=== PATIENT | female | born 1990 | race African-American/Black ===

== ENCOUNTER 2018-07-23 06:57 | Emergency (ER) | payer OTHER ==
[~2018-07-23] VITALS: Ht 160 cm; Wt 104.3 kg
[2018-07-23 07:42] LABS: ABSOLUTE NEUTROPHILS 8.8 thou/uL (1.4-8.2); BASOPHILS 0.1 % (0.0-2.0); EOSINOPHILS 0.1 % (0.0-3.0); HEMATOCRIT 42.5 % (37.0-47.0); HEMOGLOBIN 14.1 gm/dL (12.0-15.0); LYMPHOCYTES 11.5 % (24.0-44.0); MCH 30.5 pg (26.0-34.0); MCHC 33.1 g/dL (28.0-37.0); MCV 92.1 fL (80.0-100.0); MONOCYTES 3.8 % (1.0-8.0); PLATELET COUNT 277 thou/uL (150-400); POLYS 84.5 % (36.0-66.0); RBC 4.61 mil/uL (4.20-5.00); RDW 14.2 % (10.5-14.5); WBC 10.3 thou/uL (4.0-11.0)
[2018-07-23 07:46] LABS: CALCIUM 9.2 mg/dL (8.5-10.1); CREATININE 1.2 mg/dL (0.6-1.0); POTASSIUM 3.8 mmol/L (3.5-5.1)
[2018-07-23] MEDS ORDERED: KEPPRA 500 MG500 M1 PO (08:56)
[2018-07-23] MEDS ORDERED: PREDNISONE 20 M20 MG PO (08:56)
[2018-07-23 09:31] VITALS: BP 121/78
== END 2018-07-23 09:31 | disposition home or self-care (01) ==
LOC: ER 06:57
PROVIDERS: Emergency Medicine
DX: R56.9 Unspecified convulsions (principal); L50.9 Urticaria, unspecified; R07.89 Other chest pain

== ENCOUNTER 2018-11-14 17:09 | Emergency (ER) | payer OTHER ==
[~2018-11-14] VITALS: Ht 160 cm; Wt 104.3 kg
[~2018-11-14 17:09] MED LIST: KEPPRA 500 MG500 M1 PO; PREDNISONE 20 M20 MG PO
[2018-11-14 17:57] LABS: ABSOLUTE NEUTROPHILS 4.2 thou/uL (1.4-8.2); BASOPHILS 0.3 % (0.0-2.0); EOSINOPHILS 1.2 % (0.0-3.0); HEMOGLOBIN 12.6 gm/dL (12.0-15.0); LYMPHOCYTES 47.1 % (24.0-44.0); MCH 30.4 pg (26.0-34.0); MCHC 33.2 g/dL (28.0-37.0); MCV 91.8 fL (80.0-100.0); PLATELET COUNT 276 thou/uL (150-400); POLYS 42.4 % (36.0-66.0); RBC 4.15 mil/uL (4.20-5.00); RDW 14.2 % (10.5-14.5); WBC 9.8 thou/uL (4.0-11.0)
[2018-11-14 18:32] LABS: ANION GAP 8 mmol/L (7-16); BUN 11 mg/dL (7-18); CALCIUM 9.1 mg/dL (8.5-10.1); CHLORIDE 107 mmol/L (98-107); CO2 28 mmol/L (21-32); GLUCOSE 122 mg/dL (74-106); POTASSIUM 3.8 mmol/L (3.5-5.1); SODIUM 143 mmol/L (136-145)
[2018-11-14 18:41] LABS: ALBUMIN 3.4 g/dL (3.4-5.0); SGOT 17 U/L (15-37); SGPT 11 U/L (30-65); TOTAL BILIRUBIN 0.3 mg/dL (<0.1-1.0); TROPONIN-I <0.06 ng/mL (<0.06)
[2018-11-14] MEDS ORDERED: ZANTAC 150MG T150 MG PO (19:32)
[2018-11-14] MEDS ORDERED: PREDNISONE 20 M20 MG PO (19:32)
[2018-11-14 19:59] VITALS: BP 119/78
--- NOTE | 2018-11-15 07:34 | EKG ---
[place] [address] [email or web address] [place] [address] ELECTROCARDIOGRAM REPORT Name: KEAGAN GOSS Room #: [facility] [place]#: [id number] ������������������ Admission: 11/14/18 ������������������ Attend Phys: Discharge: 11/14/18 ������������������ Date of : 88 Report #: [id number] ����������������������������������������������������������������� [id number] THIS REPORT FOR: //name// [facility] ED Test Date: 2018-11-14 Test Time: 17:32:16 Pat Name: KEAGAN GOSS Department: Room: Gender: F Senior Bioinformatics Specialist: : 1990 Requested By: Leighann Cohen Order Number: [id number] MD: Sam Reagan Measurements Intervals [place] Rate: 86 P: 18 [place]: 183 QRS: 12 QRSD: 91 T: 9 QT: 364 QTc: 436 Interpretive Statements Sinus rhythm Normal tracing No previous ECG available for comparison Electronically Signed On 11-15-2018 7:34:11 CDT by Sam Reaagn [email or web address] ��������������������������������������������� <ELECTRONICALLY SIGNED> ���������������������������������������� By: Sam Reagan MD, [facility] ��������������������������������������������� 11/15/18 0734 1732 1732 Sam Reagan MD, FACC /EPI
== END 2018-11-14 20:13 | disposition home or self-care (01) ==
LOC: ER 17:09
PROVIDERS: Nurse Practitioner Family
DX: R07.89 Other chest pain (principal); Z91.018 Allergy to other foods